=== PATIENT | male | born 1955 | race Two or more races ===

== ENCOUNTER 2016-12-01 14:35 | Inpatient (IN) | payer MEDICAID ==
[~2016-12-01] VITALS: Ht 165.1 cm; Wt 68.0 kg
[~2016-12-01 14:35] MED LIST: NORVASC2.5 MG ORAL
--- NOTE | 2016-12-01 14:54 | Emergency Room Report ---
History of Present Illness General Chief Complaint: General Complaint Source: Patient, Medical Record Present Illness HPI 61-year-old male with pmhx of HTN, HLD p/w chest pain for 2 hours. Chest pain started while walking. Localized to substernal area, no radiation to back or other areas, sharp in nature, gradual in onset, lasted one to 2 hours, 1 episode. Occurred on exertion. States that he felt very dizzy after he got the chest pain, fell but did not hit his head. Denies SOB. Denies palpitations, diaphoresis, n/v. Denies fever, chills, cough, abd pain. Denies trauma. Patient has never had a stress test. Patient has never had a cardiac catheterization. Denies smoking, no family history of cardiac disease at a young age. Allergies: Coded Allergies: No Known Allergies (Unverified , 12/01/16) Patient History Past Medical History: see triage record Past Surgical History: none Pertinent Family History: none Reviewed Nursing Documentation: PMH: Agreed, PSxH: Agreed Nursing Documentation-PMH Hx Hypertension: Yes - HYPERCHOLESTEROLEMIA Review of Systems All Other Systems: negative except mentioned in HPI Physical Exam Vital Signs Date Time Temp Pulse Resp B/P (MAP) Pulse Ox O2 Delivery O2 Flow Rate FiO2 12/01/16 14:30 99.0 115 20 156/100 96 Room Air Sp02 EP Interpretation: reviewed, normal General Appearance: alert, GCS 15, non-toxic, mild distress, other - Appears anxious, slightly short of breath however it is speaking in complete sentences Head: normocephalic, atraumatic Eyes: bilateral eye normal inspection, bilateral eye PERRL, bilateral eye EOMI ENT: normal ENT inspection, normal pharynx, normal voice, moist mucus membranes Neck: normal inspection, full range of motion, supple Respiratory: normal inspection, lungs clear, normal breath sounds, no respiratory distress, no retraction, no wheezing, speaking full sentences, chest symmetrical Cardiovascular #1: normal inspection, regular rate, rhythm, no edema, normal capillary refill Cardiovascular #2: 2+ radial (R), 2+ radial (L) Gastrointestinal: normal inspection, non tender, soft, non-distended, no guarding Musculoskeletal: normal inspection, back normal, normal range of motion, non- tender Neurologic: normal inspection, alert, oriented x3, responsive, motor strength/ tone normal, sensory intact, normal gait, speech normal Psychiatric: normal inspection, judgement/insight normal, memory normal Skin: normal inspection, normal color, no rash, warm/dry, well hydrated, normal turgor Medical Decision Making Diagnostic Impression: Primary Impression: Acute coronary syndrome Additional Impressions: Anemia CHF (congestive heart failure) Renal insufficiency Atrial fibrillation with controlled ventricular rate ER Course 61-year-old male p/w CP for 2 hours DDX: ACS vs. CHF vs. pneumonia vs. gastritis/GERD vs. pneumothorax Plan: IV access, obtain labs including troponin, EKG, CXR ASA Anticipate admission ER course: Patient was treated with ASA. Patient has remained on a monitor, HD stable, chest pain improved. Pt unable to urinate on own, had catheter placed which drained johnny colored urine Disposition: Patient requires admission for chest pain for telemetry Due to patient's history and comorbidities, patient has increased risk of acute cardiac event. Patient requires admission for further workup, serial troponin, and possible stress test/cath inpatient. D/W hospitalist Dr Lee who has accepted admission Please note that this Emergency Department Report was dictated using [employer] station manager technology software, occasionally this can lead to erroneous entry secondary to interpretation by the dictation equipment. EKG Diagnostic Results EP Interpretation: Yes Rate: normal Rhythm: afib ST Segments: TWI I, aVL, V6 ASA given to patient: Y Rhythm Strip EP Interpretation: Yes Rate: 90 Rhythm: afib, no PVCs, no ectopy Chest X-ray CXR: Ordered: Yes 1 view Indication: Chest pain EP interpretation: Yes Interpretation: +cardiomegaly, mild pulm vasc congestion Impression: +cardiomegaly chf Electronically signed by Shiloh Pitt MD Laboratory Tests Test 12/01/16 15:00 White Blood Count 6.9 K/UL (4.8-10.8) Red Blood Count 3.48 M/UL (4.70-6.10) L Hemoglobin 8.2 G/DL (14.2-18.0) L Hematocrit 26.7 % (42.0-52.0) L Mean Corpuscular Volume 77 FL (80-99) L Mean Corpuscular Hemoglobin 23.7 PG (27.0-31.0) L Mean Corpuscular Hemoglobin Concent 30.8 G/DL (32.0-36.0) L Red Cell Distribution Width 19.7 % (11.6-14.8) H Platelet Count 258 K/UL (150-450) Mean Platelet Volume 6.3 FL (6.5-10.1) L Neutrophils (%) (Auto) 74.3 % (45.0-75.0) Lymphocytes (%) (Auto) 10.9 % (20.0-45.0) L Monocytes (%) (Auto) 11.0 % (1.0-10.0) H Eosinophils (%) (Auto) 2.6 % (0.0-3.0) Basophils (%) (Auto) 1.1 % (0.0-2.0) Sodium Level 136 MMOL/L (136-145) Potassium Level 4.9 MMOL/L (3.5-5.1) Chloride Level 101 MMOL/L (98-107) Carbon Dioxide Level 22 MMOL/L (21-32) Anion Gap 13 mmol/L (5-15) Blood Urea Nitrogen 76 mg/dL (7-18) H Creatinine 2.6 MG/DL (0.55-1.30) H Estimate Glomerular Filtration Rate 25.4 mL/min (>60) Glucose Level 104 MG/DL (74-106) Calcium Level 9.2 MG/DL (8.5-10.1) Total Bilirubin 0.5 MG/DL (0.2-1.0) Aspartate Amino Transferase (AST) 55 U/L (15-37) H Alanine Aminotransferase (ALT) 58 U/L (12-78) Alkaline Phosphatase 267 U/L (46-116) H Total Creatine Kinase 47 U/L (26-308) Creatine Kinase MB 1.8 NG/ML (0.0-3.6) Creatine Kinase MB Relative Index 3.8 Troponin I 0.035 ng/mL (0.000-0.056) Pro-B-Type Natriuretic Peptide 22947 pg/mL (0-125) H Total Protein 7.9 G/DL (6.4-8.2) Albumin 3.0 G/DL (3.4-5.0) L Globulin 4.9 g/dL Albumin/Globulin Ratio 0.6 (1.0-2.7) L Last Vital Signs Date Time Temp Pulse Resp B/P (MAP) Pulse Ox O2 Delivery O2 Flow Rate FiO2 10/25/17 14:30 99.0 115 20 156/100 96 Room Air Disposition: ADMITTED INPATIENT Condition: Serious Shiloh Pitt M.D. Dec 01, 2016 14:54
[2016-12-01 14:59] VITALS: BP 156/100
[2016-12-01 15:24] LABS: BASOPHILS % (AUTO) 1.1 % (0.0-2.0); EOSINOPHILS % (AUTO) 2.6 % (0.0-3.0); LYMPHOCYTES % (AUTO) 10.9 % (20.0-45.0); MEAN CORPUSCULAR HEMOGLOBIN 23.7 PG (27.0-31.0); MEAN CORPUSCULAR HGB CONC 30.8 G/DL (32.0-36.0); MEAN CORPUSCULAR VOLUME 77 FL (80-99); MEAN PLATELET VOLUME 6.3 FL (6.5-10.1); NEUTROPHILS % (AUTO) 74.3 % (45.0-75.0); PLATELET COUNT 258 K/UL (150-450); RED BLOOD COUNT 3.48 M/UL (4.70-6.10); RED CELL DISTRIBUTION WIDTH 19.7 % (11.6-14.8); WHITE BLOOD COUNT 6.9 K/UL (4.8-10.8)
--- NOTE | 2016-12-01 15:28 | Diagnostic Imaging Report ---
Indication: PAIN Technique: One view of the chest Comparison: none Findings: There is opacity left mid and lower lung, likely combination of pleural fluid and infiltrate/atelectasis. The heart is enlarged.. Impression: Cardiomegaly Left-sided pleural effusion, likely underlying parenchymal atelectasis and/or consolidation
[2016-12-01 15:36] LABS: ALANINE AMINOTRANSFERASE 58 U/L (12-78); ALBUMIN/GLOBULIN RATIO 0.6 (1.0-2.7); ANION GAP 13 mmol/L (5-15); ASPARTATE AMINO TRANSFERASE 55 U/L (15-37); CALCIUM 9.2 MG/DL (8.5-10.1); CARBON DIOXIDE 22 MMOL/L (21-32); CHLORIDE 101 MMOL/L (98-107); CKMB 1.8 NG/ML (0.0-3.6); CREATININE 2.6 MG/DL (0.55-1.30); GLOMERULAR FILTRATION RATE 25.4 mL/min (>60); POTASSIUM 4.9 MMOL/L (3.5-5.1); SODIUM 136 MMOL/L (136-145); TOTAL PROTEIN 7.9 G/DL (6.4-8.2)
[2016-12-01 15:43] VITALS: BP 156/109
[2016-12-01 15:57] LABS: APPEARANCE,URINE SLIGHTLY CLOUDY; KETONES,URINE NEGATIVE (NEGATIVE); LEUKOCYTE ESTERASE ,URINE NEGATIVE (NEGATIVE); NITRITE,URINE NEGATIVE (NEGATIVE); PH,URINE 6 (4.5-8.0); PROTEIN,URINE 3+ (NEGATIVE); UROBILINOGEN,URINE 1 MG/DL (0.0-1.0)
[2016-12-01 16:05] LABS: AMORPHOUS SEDIMENT,UR MANY /LPF; BACTERIA,URINE FEW /HPF; RBC,URINE TNTC /HPF (0 - 0); WBC,URINE 0-2 /HPF (0 - 0)
[2016-12-01] MEDS ORDERED: Nitroglycerin Subl 0.4mg tab SL PRN (17:45)
[2016-12-01] MEDS ORDERED: Warfarin Sodium 1mg ORAL ONE (17:45)
[2016-12-01] MEDS ORDERED: Zolpidem 5mg tab ORAL PRN (17:45)
[2016-12-01] MEDS ORDERED: Miralax 17gm pkt ORAL PRN (17:45)
[2016-12-01] MEDS ORDERED: Acetaminophen 650 MG SUPP RECTAL PRN (17:45)
[2016-12-01] MEDS ORDERED: Metoprolol Tartrate 12.5mg TAB ORAL ONE (18:30)
[2016-12-01] MEDS: HydrALAZINE 25mg tab ORAL SCH (18:42)
[2016-12-01 18:44] VITALS: BP 154/116
[2016-12-01 19:09] LABS: PROTHROMBIN TIME 10.6 SEC (9.30-11.50)
--- NOTE | 2016-12-01 19:21 | Cardiology Progress Note ---
Assessment/Plan Assessment/Plan The patient is seen and examined, full consult note will be dictated soon. Objective Last 24 Hour Vital Signs Date Time Temp Pulse Resp B/P (MAP) Pulse Ox O2 Delivery O2 Flow Rate FiO2 12/01/16 18:44 97.3 101 20 154/116 95 Room Air 12/01/16 18:42 154/116 12/01/16 18:42 101 154/116 12/01/16 18:31 89 24 141/71 99 Room Air 12/01/16 15:43 99.0 96 29 156/109 98 Room Air 12/01/16 14:59 99.0 20 156/100 96 Room Air 12/01/16 14:30 99.0 115 20 156/100 96 Room Air Intake and Output 12/01/16 12/02/16 19:00 07:00 Intake Total 490 ml Output Total 20 ml Balance 470 ml Intake Oral 490 ml Output Urine Total 20 ml Laboratory Tests Test 12/01/16 15:00 12/01/16 15:40 White Blood Count 6.9 K/UL (4.8-10.8) Red Blood Count 3.48 M/UL (4.70-6.10) L Hemoglobin 8.2 G/DL (14.2-18.0) L Hematocrit 26.7 % (42.0-52.0) L Mean Corpuscular Volume 77 FL (80-99) L Mean Corpuscular Hemoglobin 23.7 PG (27.0-31.0) L Mean Corpuscular Hemoglobin Concent 30.8 G/DL (32.0-36.0) L Red Cell Distribution Width 19.7 % (11.6-14.8) H Platelet Count 258 K/UL (150-450) Mean Platelet Volume 6.3 FL (6.5-10.1) L Neutrophils (%) (Auto) 74.3 % (45.0-75.0) Lymphocytes (%) (Auto) 10.9 % (20.0-45.0) L Monocytes (%) (Auto) 11.0 % (1.0-10.0) H Eosinophils (%) (Auto) 2.6 % (0.0-3.0) Basophils (%) (Auto) 1.1 % (0.0-2.0) Prothrombin Time 10.6 SEC (9.30-11.50) Prothromb Time International Ratio 1.0 (0.9-1.1) Sodium Level 136 MMOL/L (136-145) Potassium Level 4.9 MMOL/L (3.5-5.1) Chloride Level 101 MMOL/L (98-107) Carbon Dioxide Level 22 MMOL/L (21-32) Anion Gap 13 mmol/L (5-15) Blood Urea Nitrogen 76 mg/dL (7-18) H Creatinine 2.6 MG/DL (0.55-1.30) H Estimat Glomerular Filtration Rate 25.4 mL/min (>60) Glucose Level 104 MG/DL (74-106) Calcium Level 9.2 MG/DL (8.5-10.1) Total Bilirubin 0.5 MG/DL (0.2-1.0) Aspartate Amino Transf (AST/SGOT) 55 U/L (15-37) H Alanine Aminotransferase (ALT/SGPT) 58 U/L (12-78) Alkaline Phosphatase 267 U/L (46-116) H Total Creatine Kinase 47 U/L (26-308) Creatine Kinase MB 1.8 NG/ML (0.0-3.6) Creatine Kinase MB Relative Index 3.8 Troponin I 0.035 ng/mL (0.000-0.056) Pro-B-Type Natriuretic Peptide 01465 pg/mL (0-125) H Total Protein 7.9 G/DL (6.4-8.2) Albumin 3.0 G/DL (3.4-5.0) L Globulin 4.9 g/dL Albumin/Globulin Ratio 0.6 (1.0-2.7) L Urine Color Yellow Urine Appearance Slightly cloudy Urine pH 6 (4.5-8.0) Urine Specific [place] Ari 1.010 (1.005-1.035) Urine Protein 3+ (NEGATIVE) H Urine Glucose (UA) Negative (NEGATIVE) Urine Ketones Negative (NEGATIVE) Urine Occult Blood 5+ (NEGATIVE) H Urine Nitrite Negative (NEGATIVE) Urine Bilirubin Negative (NEGATIVE) Urine Urobilinogen 1 MG/DL (0.0-1.0) H Urine Leukocyte Esterase Negative (NEGATIVE) Urine RBC Tntc /HPF (0 - 0) H Urine WBC 0-2 /HPF (0 - 0) Urine Squamous Epithelial Cells None /LPF (NONE/OCC) Urine Amorphous Sediment Many /LPF (NONE) H Urine Bacteria Few /HPF (NONE) FLAVIO HANCOCK Dec 01, 2016 19:21
[2016-12-01 20:00] VITALS: BP 144/96
[2016-12-01] MEDS ORDERED: Imdur 30mg tab ORAL SCH (21:00)
[2016-12-01] MEDS: Heparin 5000 units/ml inj SUBQ SCH (21:00)
[2016-12-01] MEDS ORDERED: METOPROLOL SUCC25 MG ORAL (21:38)
[2016-12-01] MEDS ORDERED: ISOSORBIDE MONO30 M1 PO (21:38)
[2016-12-01] MEDS ORDERED: LIPITOR20 MG ORAL (21:38)
[2016-12-01] MEDS ORDERED: LOSARTAN POTASS50 MG ORAL (21:38)
[2016-12-01] MEDS ORDERED: XARELTO15 MG ORAL (21:38)
[2016-12-01] MEDS ORDERED: ASPIRIN EC81 MG ORAL (21:38)
[2016-12-01] MEDS ORDERED: BUMETANIDE2 MG ORAL (21:38)
[2016-12-01] MEDS ORDERED: FERROUS SULFAT325 MG ORAL (21:38)
[2016-12-01] MEDS ORDERED: AMLODIPINE BESY10 MG ORAL (21:38)
[2016-12-01] MEDS ORDERED: HYDRALAZINE HC100 MG ORAL (21:38)
[2016-12-02] VITALS: BP 151/93
--- NOTE | 2016-12-02 01:45 | Consultation ---
DATE OF CONSULTATION: 12/01/2016 CARDIOLOGY CONSULTATION CONSULTING PHYSICIAN: Sage Hines M.D. REFERRING PHYSICIAN: Davonte Lee M.D. REASON FOR CONSULTATION: Management of chest pain. HISTORY OF PRESENT ILLNESS: This Cardiology consultation is on behalf of Dr. Rashaad Carney for whom I am covering. The patient is a very pleasant 61-year-old gentleman, who presented to the emergency department with complaints of chest pain that occurred while he was walking in the midsternal area, nonradiating, sharp in character that lasted just about a couple hours. The pain was not associated with shortness of breath, but he had some dizziness associated with it. He decided to come to the hospital. On arrival to the hospital, initial blood pressure was 156/100 mmHg and heart rate of 115. He was admitted to the telemetry under the service of Dr. Lee. Cardiology consultation was made for evaluation of chest pain. The patient states that he has a history of weak heart, but he had never had any workup for it. His risk factors for coronary artery disease including hypertension and hyperlipidemia. In the emergency department, initial evaluation also revealed presence of renal failure. A 12-lead electrocardiogram was significant for atrial fibrillation with no ST and T-wave abnormalities to suggest acute ischemia. Initial troponin I level was within normal limits. PAST MEDICAL HISTORY: Hypertension, hyperlipidemia, and history of cardiomyopathy. PAST SURGICAL HISTORY: None. MEDICATIONS: List of medication includes amlodipine 2.5 mg p.o. daily. SOCIAL HISTORY: Used to drink many, many years ago, but not a heavy drinker. Denies any tobacco or illicit drug use. FAMILY HISTORY: No premature coronary artery disease in first-degree relatives. REVIEW OF SYSTEMS: HEENT: Denies any headache, diplopia, or blurred vision. CONSTITUTIONAL: Denies any fever, chills, nausea, or weight loss. CARDIOVASCULAR: Complains of chest pain, but no PND, orthopnea, leg swelling, syncope, or palpitation. PULMONARY: Denies any cough or hemoptysis. GASTROINTESTINAL: Denies any nausea, vomiting, diarrhea, constipation, abdominal pain, or GI bleed. GENITOURINARY: Denies any hematuria, dysuria, or incontinence. NEUROLOGY: Denies any motor dysfunction, sensory deficit, or altered speech. PHYSICAL EXAMINATION: VITAL SIGNS: Blood pressure is 156/100, respirations 20, pulse of 115, temperature 99.0 degrees Fahrenheit, and O2 saturation 96% on room air. GENERAL: He is a very pleasant 61-year-old gentleman, in no apparent respiratory distress. Alert and oriented x4. HEENT: Atraumatic and normocephalic. Pupils are equal, round and reactive to light and accommodation. Extraocular muscles intact. NECK: JVP elevated that is about 18 cm. No carotid bruit. Carotid upstrokes 2+ bilaterally. CARDIOVASCULAR: Normal S1 and S2. Irregularly irregular rhythm. There is a 2/6 mid systolic murmur at the left sternal border. PMI is at 4th intercostal space at the midclavicular line. LUNGS: Clear to auscultation bilaterally. ABDOMEN: Soft, nontender, and nondistended. No hepatosplenomegaly. Positive bowel sounds. EXTREMITIES: There is no evidence of edema, clubbing, or cyanosis. LABORATORY FINDINGS: Sodium 136, potassium is 4.9, chloride 101, bicarbonate 22, BUN of 76, creatinine 2.6, glucose is 104, and calcium is 9.2. Troponin I was 0.035. ProBNP was 23,564. INR is 1.0. WBC 6.9, hemoglobin 8.2, hematocrit 26.7, and platelet count is 258,000. Chest x-ray showed left-sided pleural effusion, but no evidence of pulmonary edema. There is also presence of cardiomegaly. ASSESSMENT AND PLAN: The patient is a very unfortunate 61-year-old gentleman, seen in Cardiology consultation at the request of Dr. Lee. 1. I would suspect that the patient has permanent atrial fibrillation. It appears that he has a rapid ventricular response. We would like to rate control with beta-blockers. 2. At this time, the patient's CHADS-VASc score is above 1. Therefore, there is immediate requirement for anticoagulation therapy. However, we do not have a clear cardiac picture. The patient may have associated cardiomyopathy based on the history. A 2D echocardiography is ordered. Further therapeutic and diagnostic decision will be based on the result of this study. 3. Chest pain, appears to be atypical. Risk factors for coronary artery disease including hypertension and hyperlipidemia. We would like to obtain another troponin I level to rule out acute myocardial infarction. The patient may be a surgical candidate for pharmacological stress test. In the meantime, we would like to obtain a fasting lipid panel. 4. History of hypertension. We would like to continue with calcium channel josue and beta-blockers. I would like to thank Dr. Lee for the courtesy of this consultation. Sage Hines M.D. DR: EARLENE JOB#: [id number] CC:
[2016-12-02 04:00] VITALS: BP 146/98
[2016-12-02 08:13] LABS: MEAN CORPUSCULAR HEMOGLOBIN 22.4 PG (27.0-31.0); MEAN CORPUSCULAR HGB CONC 28.3 G/DL (32.0-36.0); MEAN CORPUSCULAR VOLUME 79 FL (80-99); PLATELET COUNT 248 K/UL (150-450); RED BLOOD COUNT 3.54 M/UL (4.70-6.10); RED CELL DISTRIBUTION WIDTH 19.4 % (11.6-14.8); WHITE BLOOD COUNT 6.7 K/UL (4.8-10.8)
[2016-12-02 08:26] VITALS: BP 147/106
[2016-12-02 08:35] LABS: ALANINE AMINOTRANSFERASE 65 U/L (12-78); ALBUMIN/GLOBULIN RATIO 0.6 (1.0-2.7); ANION GAP 11 mmol/L (5-15); ASPARTATE AMINO TRANSFERASE 53 U/L (15-37); CALCIUM 9.2 MG/DL (8.5-10.1); CARBON DIOXIDE 24 MMOL/L (21-32); CHLORIDE 104 MMOL/L (98-107); CHOLESTEROL 132 MG/DL (< 200); CHOLESTEROL/HDL RATIO 2.2 (3.3-4.4); CKMB 1.4 NG/ML (0.0-3.6); CREATININE 2.6 MG/DL (0.55-1.30); FERRITIN 77 NG/ML (8-388); GLOMERULAR FILTRATION RATE 25.4 mL/min (>60); POTASSIUM 4.4 MMOL/L (3.5-5.1); SODIUM 139 MMOL/L (136-145); THYROID STIMULATING HORMONE 0.975 uiU/mL (0.360-3.740); TOTAL PROTEIN 7.8 G/DL (6.4-8.2)
[2016-12-02 08:50] LABS: IRON 24 ug/dL (50-175); TOTAL IRON BINDING CAPACITY 390 ug/dL (250-450)
[2016-12-02 08:56] LABS: ANISOCYTOSIS 1+; BAND NEUTROPHILS % (MANUAL) 0 % (0-8); BASOPHILS % (MANUAL) 0 % (0-2); EOSINOPHILS % (MANUAL) 2 % (0-3); HYPOCHROMASIA 1+; LYMPHOCYTES % (MANUAL) 10 % (20-45); MICROCYTES 1+; NEUTROPHILS % (MANUAL) 80 % (45-75); PLATELET ESTIMATE ADEQUATE; PLATELET MORPHOLOGY NORMAL; TOTAL CELLS COUNTED 100
[2016-12-02] MEDS ORDERED: Aspirin Baby 81mg NG SCH (09:00)
[2016-12-02] MEDS ORDERED: Metoprolol 25mg tab ORAL SCH (09:00)
[2016-12-02] MEDS ORDERED: Metoprolol Tartrate 12.5mg TAB ORAL SCH (09:00)
--- NOTE | 2016-12-02 10:07 | Diagnostic Imaging Report ---
Indication: Acute renal failure Technique: Grayscale and duplex images of the kidneys, retroperitoneum, and bladder were obtained. Comparison:None Findings: Right kidney measures 9.7 cm in length. Left kidney measures 10.3 cm in length. Both kidneys demonstrate borderline increased echogenicity.. No hydronephrosis. Right kidney demonstrates small cysts. The left kidney demonstrates a heterogeneous interpolar region mass which measures 2.5 cm in diameter, does demonstrate some increased through-transmission. Other simple cysts are seen in the left kidney. Normal inferior vena cava. Bladder demonstrates wall thickening. Incidental finding of trace ascites Impression: Negative for hydronephrosis Borderline increased renal echogenicity, likely medical renal disease Left renal interpolar region mass with low-level internal echoes. Possibly a complex cyst, but solid mass also a possibility. Further evaluation with contrast CT if possible, or MRI recommended. This finding was discussed by phone with Dr. Lee at time of interpretation Trace ascites fluid
[2016-12-02] MEDS: HydrALAZINE 25mg tab ORAL SCH ×2 (10:09→13:35)
[2016-12-02] MEDS: Heparin 5000 units/ml inj SUBQ SCH (10:13)
[2016-12-02 11:32] VITALS: BP 157/109
[2016-12-02] MEDS ORDERED: Flu Vaccine Quadrivalent 0.5ml IM ONE (12:00)
--- NOTE | 2016-12-02 15:34 | Cardiology Report ---
APPROVED REPORT EXAM: Two-dimensional and M-mode echocardiogram with Doppler and color Doppler. INDICATION Coronary artery disease M-Mode DIMENSIONS IVSd1.4 (0.7-1.1cm)Left Atrium (MM)4.8 (1.6-4.0cm) LVDd5.9 (3.5-5.6cm)Aortic Root2.9 (2.0-3.7cm) PWd1.0 (0.7-1.1cm)Aortic Cusp Exc.2.0 (1.5-2.0cm) LVDs5.3 (2.5-4.0cm) PWs1.5 cm Limited study due to patient request to end examination early. Mild left ventricular chamber size enlargement. Abnormal septal motion. Global left ventricular hypokinesis. Left ventricular ejection fraction estimated to be 15-20 %. Mild left ventricular hypertrophy. Possible large pleural effusion. Mild left atrial enlargement. Moderate right atrial enlargement. Moderate right ventricular enlargement. Mild focal aortic valve sclerosis with adequate cusp excursion. Mildly thickened mitral valve leaflets with normal excursion. Mild mitral annulus and aortic root calcification. Normal pulmonic valve structure. Normal tricuspid valve structure. Subcostal views not obtained. A color flow and spectral Doppler study was performed and revealed: Trace aortic regurgitation. Moderate mitral regurgitation. Left ventricular diastolic function could not be determined due to A-Fib. Severe tricuspid regurgitation. Tricuspid systolic velocities suggests peak right ventricular systolic pressure of 65 mmHg, consistent with severe pulmonary hypertension. No pulmonic regurgitation present.
--- NOTE | 2016-12-02 16:33 | Cardiology Report ---
APPROVED REPORT EKG Measurement Heart [id number] Atrial fibrillation Nonspecific T wave abnormality Abnormal ECG
--- NOTE | 2016-12-02 16:39 | Cardiology Report ---
APPROVED REPORT EKG Measurement Heart [id number] Atrial fibrillation T wave abnormality, consider lateral ischemia Abnormal ECG
[2016-12-02] MEDS: Imdur 30mg tab ORAL SCH (16:43)
[2016-12-02] MEDS: Xarelto 15mg tab ORAL SCH (16:44)
[2016-12-02] MEDS ORDERED: Norco 5mg/325mg tab ORAL PRN (17:45)
[2016-12-02] MEDS ORDERED: Metoprolol Succinate XL 25mg tab ORAL SCH (18:00)
[2016-12-02] MEDS: Bumetanide 1mg tab ORAL SCH (18:05)
[2016-12-02] MEDS: HydrALAZINE 50mg tab ORAL SCH (18:06)
--- NOTE | 2016-12-02 19:00 | History and Physical Report ---
DATE OF ADMISSION: 12/01/2016 CHIEF COMPLAINT AND REASON FOR HOSPITALIZATION: The patient is admitted for evaluation of chest pressure and other medical conditions. HISTORY OF PRESENT ILLNESS: The patient presents with an episode occurring apparently while he was in the [facility] station of feeling dizziness, weak, and feeling like he might fall. He had an episode of chest pressure that he stated lasted 20 minutes. He was assisted by a person in the [facility] station and came to the emergency room. The patient states he has had a history of heart disease and has seen doctors in other facilities. He has apparently had a cardiac catheterization and was told he has blockages, but according to the patient, he is not aware of having any stents. He also has had recurrent [id number] leg and scrotal edema, he states about once a month. The patient has a history of hypertension. He is in atrial fibrillation, which apparently is chronic. PAST SURGICAL HISTORY: He had trauma to the right leg with fracture and skin graft from the right thigh and also a bone graft from his right hip. MEDICATIONS: Medications at home according to a list obtained from the nurse include amlodipine, losartan, Xarelto, metoprolol, Bumex, hydralazine, atorvastatin, isosorbide, and ferrous sulfate and I believe aspirin 81 mg daily. ALLERGIES: None known. HABITS: He smokes 2 or 3 cigarettes a day, formally more. Alcohol in the past, none currently. He used amphetamines, he states for only about 20 days that was 50 days ago. SOCIAL HISTORY: He is from his . 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 SYSTEM REVIEW: HEAD, EYES, EARS, NOSE, AND THROAT: He has some blurry vision for distant vision. He is not aware of any cataracts or glaucoma. Hearing is good. ENDOCRINE: He is not aware of any diabetes or thyroid disease. PULMONARY: No history of asthma or TB. He has had some dyspnea on exertion. CARDIAC: See history of present illness. GASTROINTESTINAL: No ulcers or GI bleeding. No abdominal pain. GENITOURINARY: No dysuria or hematuria. He has slight decreased stream of the urine. NEUROLOGIC: No CVA, syncope, or seizures. MUSCULOSKELETAL: No history of severe joint disease. PHYSICAL EXAMINATION: GENERAL: The patient is an alert man, sitting up in a chair, currently in no acute distress, somewhat thin. BMI is 26.6. VITAL SIGNS: Temperature 97.3 degrees, pulse 92, respirations 20, blood pressure 146/98, and pulse oximetry 95% on room air. HEENT: Sclerae nonicteric. Ocular motions are intact in all directions. Oral mucosa is moist. NECK: No adenopathy or thyroid enlargement. LUNGS: Clear. HEART: Rhythm is atrial fibrillation. There is a 1/6 systolic murmur. ABDOMEN: Soft without organomegaly or masses. GENITOURINARY: Penis and testes normal. No scrotal edema. BACK: Mild kyphosis. EXTREMITIES: No edema, cyanosis, or clubbing. NEUROLOGIC: He is alert and oriented. Cranial nerves are intact. LABORATORY AND DIAGNOSTIC DATA: Troponin is 0.037 and 0.036 serially. BUN 76 and creatinine 2.6. Electrolytes normal. The BNP 23,564. Albumin is 3.0. IMPRESSION: 1. Chest pain, possible acute coronary syndrome with a history of cardiac disease as noted above. 2. Chronic congestive heart failure. 3. Chronic kidney disease, likely stage 4 or 5. 4. Left-sided pleural effusion, likely underlying parenchymal atelectasis and consolidation. 5. Chronic atrial fibrillation with somewhat high ventricular rate on arrival. 6. Hypertensive heart disease and renal disease. 7. Questionable right renal mass on ultrasound, which likely is a cyst, but he is at risk for having a renal mass. 8. Inadequate database as far as prior records. PLAN: The patient will be placed back on a regimen similar to his home regimen. We will watch him for any cardiac complications, try to stabilize his condition, discuss his renal disease and future care and need for followup as he may need dialysis in the future. We will also get renal imaging. Davonte Lee M.D. DR: Anjelica JOB#: [id number] CC:
[2016-12-02 20:09] VITALS: BP 119/80
[2016-12-02] MEDS ORDERED: Xarelto 15mg tab ORAL SCH (21:00)
[2016-12-02] MEDS ORDERED: Atorvastatin 20mg tab ORAL SCH (21:00)
[2016-12-02] MEDS ORDERED: Iron Sucrose 100 MG in NS 55 ML IV SCH (21:00)
--- NOTE | 2016-12-02 23:02 | Cardiology Progress Note ---
Assessment/Plan Assessment/Plan 1. Chest pain, atypical likely due to underlying CM, AMI is ruled out. Continue medical therapy. ECG with no clear cut evidence of ischemia. 2. Chronic systolic and diastolic CHF 3. Severe pulmonary HTN likely due to pulmonary venous HTN. Subjective Subjective Atrial fibrillation with controlled ventricular response around 81. Objective Last 24 Hour Vital Signs Date Time Temp Pulse Resp B/P (MAP) Pulse Ox O2 Delivery O2 Flow Rate FiO2 12/02/16 20:09 97.0 81 20 119/80 93 Room Air 12/02/16 18:06 157/109 12/02/16 18:05 83 157/109 12/02/16 16:43 157/109 12/02/16 16:00 83 12/02/16 13:35 157/109 12/02/16 12:00 79 12/02/16 11:32 97.1 84 20 157/109 96 Room Air 12/02/16 10:10 105 147/106 12/02/16 10:09 147/106 12/02/16 08:26 97.1 105 20 147/106 95 Room Air 12/02/16 08:00 100 12/02/16 04:00 76 12/02/16 04:00 97.3 92 20 146/98 95 Room Air 92 12/02/16 00:00 92 12/02/16 00:00 97.9 75 20 151/93 Room Air Intake and Output 12/02/16 12/03/16 19:00 07:00 Intake Total 980 ml Output Total 1025 ml Balance -45 ml Intake Oral 980 ml Output Urine Total 1025 ml # Voids 1 2D Echo: Four chamber DCM, LVEF 15%, LVH, Large pl. effusion, RVSP 65 mmHg, Mod MR Laboratory Tests Test 12/02/16 07:40 White Blood Count 6.7 K/UL (4.8-10.8) Red Blood Count 3.54 M/UL (4.70-6.10) L Hemoglobin 7.9 G/DL (14.2-18.0) L Hematocrit 28.0 % (42.0-52.0) L Mean Corpuscular Volume 79 FL (80-99) L Mean Corpuscular Hemoglobin 22.4 PG (27.0-31.0) L Mean Corpuscular Hemoglobin Concent 28.3 G/DL (32.0-36.0) L Red Cell Distribution Width 19.4 % (11.6-14.8) H Platelet Count 248 K/UL (150-450) Mean Platelet Volume 6.0 FL (6.5-10.1) L Neutrophils (%) (Auto) % (45.0-75.0) Lymphocytes (%) (Auto) % (20.0-45.0) Monocytes (%) (Auto) % (1.0-10.0) Eosinophils (%) (Auto) % (0.0-3.0) Basophils (%) (Auto) % (0.0-2.0) Differential Total Cells Counted 100 Neutrophils % (Manual) 80 % (45-75) H Lymphocytes % (Manual) 10 % (20-45) L Monocytes % (Manual) 8 % (1-10) Eosinophils % (Manual) 2 % (0-3) Basophils % (Manual) 0 % (0-2) Band Neutrophils 0 % (0-8) Platelet Estimate Adequate Platelet Morphology Normal Hypochromasia 1+ Anisocytosis 1+ Microcytosis 1+ Sodium Level 139 MMOL/L (136-145) Potassium Level 4.4 MMOL/L (3.5-5.1) Chloride Level 104 MMOL/L (98-107) Carbon Dioxide Level 24 MMOL/L (21-32) Anion Gap 11 mmol/L (5-15) Blood Urea Nitrogen 76 mg/dL (7-18) H Creatinine 2.6 MG/DL (0.55-1.30) H Estimat Glomerular Filtration Rate 25.4 mL/min (>60) Glucose Level 100 MG/DL (74-106) Calcium Level 9.2 MG/DL (8.5-10.1) Iron Level 24 ug/dL (50-175) L Total Iron Binding Capacity 390 ug/dL (250-450) Percent Iron Saturation 6 % (15-50) L Unsaturated Iron Binding 366 ug/dL (112-346) H Ferritin 77 NG/ML (8-388) Total Bilirubin 0.4 MG/DL (0.2-1.0) Aspartate Amino Transf (AST/SGOT) 53 U/L (15-37) H Alanine Aminotransferase (ALT/SGPT) 65 U/L (12-78) Alkaline Phosphatase 255 U/L (46-116) H Creatine Kinase MB 1.4 NG/ML (0.0-3.6) Troponin I 0.036 ng/mL (0.000-0.056) Total Protein 7.8 G/DL (6.4-8.2) Albumin 2.8 G/DL (3.4-5.0) L Globulin 5.0 g/dL Albumin/Globulin Ratio 0.6 (1.0-2.7) L Triglycerides Level 34 MG/DL (0-200) Cholesterol Level 132 MG/DL (< 200) LDL Cholesterol 57 mg/dL (<100) HDL Cholesterol 61 MG/DL (40-60) H Cholesterol/HDL Ratio 2.2 (3.3-4.4) L Vitamin B12 Level 6973 PG/ML (193-986) H Folate 11.0 NG/ML (3.1-17.5) Thyroid Stimulating Hormone (TSH) 0.975 uiU/mL (0.360-3.740) Free Thyroxine 1.10 NG/DL (0.10-1.46) Free Triiodothyronine Pending Objective HEENT: Atraumatic and normocephalic. Pupils are equal, round and reactive to light and accommodation. Extraocular muscles intact. NECK: JVP elevated that is about 18 cm. No carotid bruit. Carotid upstrokes 2+ bilaterally. CARDIOVASCULAR: Normal S1 and S2. Irregularly irregular rhythm. There is a 2/6 mid systolic murmur at the left sternal border. PMI is at 4th intercostal space at the midclavicular line. LUNGS: Clear to auscultation bilaterally. ABDOMEN: Soft, nontender, and nondistended. No hepatosplenomegaly. Positive bowel sounds. EXTREMITIES: There is no evidence of edema, clubbing, or cyanosis. FLAVIO HANCOCK Dec 02, 2016 23:02
[2016-12-03 00:17] VITALS: BP 140/103
[2016-12-03] MEDS: HydrALAZINE 50mg tab ORAL SCH ×4 (00:25→13:37)
[2016-12-03 04:07] VITALS: BP 156/95
[2016-12-03 08:01] LABS: MEAN CORPUSCULAR HEMOGLOBIN 23.6 PG (27.0-31.0); MEAN CORPUSCULAR VOLUME 76 FL (80-99); MEAN PLATELET VOLUME 6.4 FL (6.5-10.1); PLATELET COUNT 268 K/UL (150-450); RED BLOOD COUNT 3.67 M/UL (4.70-6.10); RED CELL DISTRIBUTION WIDTH 19.6 % (11.6-14.8); WHITE BLOOD COUNT 7.3 K/UL (4.8-10.8)
[2016-12-03 08:31] LABS: ANION GAP 14 mmol/L (5-15); CARBON DIOXIDE 22 MMOL/L (21-32); CHLORIDE 103 MMOL/L (98-107); CREATININE 2.5 MG/DL (0.55-1.30); GLOMERULAR FILTRATION RATE 26.6 mL/min (>60); POTASSIUM 4.4 MMOL/L (3.5-5.1); SODIUM 139 MMOL/L (136-145); THYROID STIMULATING HORMONE 1.229 uiU/mL (0.360-3.740)
[2016-12-03 08:53] VITALS: BP 150/97
[2016-12-03] MEDS ORDERED: Losartan 50mg tab ORAL SCH (09:00)
[2016-12-03] MEDS ORDERED: Aspirin EC 81mg tab ORAL SCH (09:00)
[2016-12-03 09:35] LABS: ANISOCYTOSIS 1+; BAND NEUTROPHILS % (MANUAL) 0 % (0-8); BASOPHILS % (MANUAL) 0 % (0-2); EOSINOPHILS % (MANUAL) 5 % (0-3); LYMPHOCYTES % (MANUAL) 7 % (20-45); MICROCYTES 1+; NEUTROPHILS % (MANUAL) 83 % (45-75); PLATELET ESTIMATE ADEQUATE; PLATELET MORPHOLOGY NORMAL; TOTAL CELLS COUNTED 100
[2016-12-03 09:36] LABS: HYPOCHROMASIA 1+
[2016-12-03] MEDS: Bumetanide 1mg tab ORAL SCH ×3 (10:36→13:37)
[2016-12-03] MEDS: Imdur 30mg tab ORAL SCH (10:37)
[2016-12-03 12:48] VITALS: BP 147/108
[2016-12-03] MEDS ORDERED: NS 275ml ONE (14:12)
[2016-12-03] MEDS ORDERED: Tubing IV Secondary IV ONE (14:12)
--- NOTE | 2016-12-03 14:39 | Diagnostic Imaging Report ---
Indication: Acute renal failure. Abnormal recent ultrasound demonstrating left renal solid mass versus cyst needing further characterization Technique: Coronal and axial single shot fast spin-echo breath-hold, axial T2 FRFSE fat-saturated, AXIAL 2-D FIESTA fat saturated, axial 3-D dual echo breath-hold, water weighted axial LAVA FLEX images were obtained of the abdomen. MIP reconstructions were generated of the bile ducts Comparison: Renal ultrasound 12/01/2016 Findings: Considerable motion artifact degrades images. In the anterior interpolar region, there is a round 2.2 cm mass which corresponds to the abnormality described on the recent CT scan. It is not optimally demonstrated, in part due to motion artifact. On the single shot fast spin-echo images, it demonstrates increased T2 signal anteriorly, it is mostly isointense to renal parenchyma. On the FIESTA images, it is isointense 2 renal parenchyma. On the the dual echo images, it is uniformly hyperintense on both image sets and likewise on the LAVA images. There is a lesion measuring 12 mm in the posterior interpolar region. Most of this lesion demonstrates fluid signal on all sequences. This demonstrates posterior layering of debris, the degree demonstrating signal characteristics similar to the more anterior lesion. A second 14 mm fluid signal lesion is also seen in the posterior cortex, as well as smaller fluid signal lesions small fluid signal lesions are also seen in the right kidney. There is no hydronephrosis. There is a 2 cm diameter left adrenal mass which demonstrates very low signal on the fat-saturated FIESTA images, demonstrates high signal on both phases of the dual echo images and low signal on the LAVA images. There is a moderate amount of ascites fluid present. The heart is mildly enlarged. There are bilateral pleural effusions. The coronal images demonstrate the bladder, possibly a low signal filling defect within the bladder. The liver, spleen, pancreas are grossly unremarkable. There is some edema of the anterior abdominal wall. Impression: 2.2 cm anterior left renal mass, as described. MRI signal characteristics are indeterminate. Similarity of the signal to the debris within a posterior left renal this makes it likely that this represents a benign proteinaceous cyst, but this cannot be stated for certain. Noncontrast CT may be of value to evaluate if this is hyperdense. Preferably, however, at some point patient can tolerate contrast, then multiphasic contrast CT or MRI would be useful 2 cm left adrenal mass. This appears to contain macroscopic fat on the fat suppressed sequences, but does not demonstrate shift on the dual echo sequences, and is therefore indeterminate. Suspect but cannot confirm that this represents either a myelolipoma or an adenoma. Recommend noncontrast CT for further evaluation or, preferably, multiphasic adrenal protocol CT Other bilateral renal cysts, as described Ascites Borderline artery mainly Bilateral pleural effusions Possible debris within the bladder Findings discussed by phone with Dr. Lee at the time of interpretation
[2016-12-03 15:58] VITALS: BP 126/70
[2016-12-03] MEDS: Xarelto 15mg tab ORAL SCH (17:39)
--- NOTE | 2016-12-03 18:18 | Cardiology Progress Note ---
Assessment/Plan Assessment/Plan 1. Chest pain, atypical likely due to underlying CM, AMI is ruled out. Continue medical therapy. ECG with no clear cut evidence of ischemia. 2. Chronic systolic and diastolic CHF, LVEF at ~25% on guideline directed medical therapy. 3. Severe pulmonary HTN likely due to pulmonary venous HTN. 4. HTN, will optimize hydralazine dose. Subjective Subjective Atrial fibrillation with controlled ventricular response around 91. Objective Last 24 Hour Vital Signs Date Time Temp Pulse Resp B/P (MAP) Pulse Ox O2 Delivery O2 Flow Rate FiO2 12/03/16 15:58 97.5 95 20 126/70 94 Room Air 12/03/16 13:37 147/108 12/03/16 12:48 96.6 91 19 147/108 100 Room Air 12/03/16 12:00 96 12/03/16 10:37 150/97 12/03/16 10:36 96 150/97 12/03/16 10:36 150/97 12/03/16 08:53 97.0 96 19 150/97 99 Room Air 12/03/16 08:00 101 12/03/16 06:03 141/102 12/03/16 04:07 96.3 91 24 156/95 91 Room Air 91 12/03/16 04:00 93 12/03/16 00:25 140/103 12/03/16 00:17 97.7 89 24 140/103 94 Room Air 12/03/16 00:00 87 12/02/16 20:09 97.0 81 20 119/80 93 Room Air 12/02/16 20:00 77 Intake and Output 12/03/16 12/04/16 19:00 07:00 Intake Total 750 ml Output Total 550 ml Balance 200 ml Intake Oral 750 ml Output Urine Total 550 ml 2D Echo: Four chamber DCM, LVEF 15%, LVH, Large pl. effusion, RVSP 65 mmHg, Mod MR Laboratory Tests Test 12/03/16 05:10 White Blood Count 7.3 K/UL (4.8-10.8) Red Blood Count 3.67 M/UL (4.70-6.10) L Hemoglobin 8.7 G/DL (14.2-18.0) L Hematocrit 27.9 % (42.0-52.0) L Mean Corpuscular Volume 76 FL (80-99) L Mean Corpuscular Hemoglobin 23.6 PG (27.0-31.0) L Mean Corpuscular Hemoglobin Concent 31.0 G/DL (32.0-36.0) L Red Cell Distribution Width 19.6 % (11.6-14.8) H Platelet Count 268 K/UL (150-450) Mean Platelet Volume 6.4 FL (6.5-10.1) L Neutrophils (%) (Auto) % (45.0-75.0) Lymphocytes (%) (Auto) % (20.0-45.0) Monocytes (%) (Auto) % (1.0-10.0) Eosinophils (%) (Auto) % (0.0-3.0) Basophils (%) (Auto) % (0.0-2.0) Differential Total Cells Counted 100 Neutrophils % (Manual) 83 % (45-75) H Lymphocytes % (Manual) 7 % (20-45) L Monocytes % (Manual) 5 % (1-10) Eosinophils % (Manual) 5 % (0-3) H Basophils % (Manual) 0 % (0-2) Band Neutrophils 0 % (0-8) Platelet Estimate Adequate Platelet Morphology Normal Hypochromasia 1+ Anisocytosis 1+ Microcytosis 1+ Sodium Level 139 MMOL/L (136-145) Potassium Level 4.4 MMOL/L (3.5-5.1) Chloride Level 103 MMOL/L (98-107) Carbon Dioxide Level 22 MMOL/L (21-32) Anion Gap 14 mmol/L (5-15) Blood Urea Nitrogen 71 mg/dL (7-18) H Creatinine 2.5 MG/DL (0.55-1.30) H Estimat Glomerular Filtration Rate 26.6 mL/min (>60) Glucose Level 90 MG/DL (74-106) Calcium Level 9.0 MG/DL (8.5-10.1) Troponin I 0.031 ng/mL (0.000-0.056) Thyroid Stimulating Hormone (TSH) 1.229 uiU/mL (0.360-3.740) Objective HEENT: Atraumatic and normocephalic. Pupils are equal, round and reactive to light and accommodation. Extraocular muscles intact. NECK: JVP elevated that is about 18 cm. No carotid bruit. Carotid upstrokes 2+ bilaterally. CARDIOVASCULAR: Normal S1 and S2. Irregularly irregular rhythm. There is a 2/6 mid systolic murmur at the left sternal border. PMI is at 4th intercostal space at the midclavicular line. LUNGS: Clear to auscultation bilaterally. ABDOMEN: Soft, nontender, and nondistended. No hepatosplenomegaly. Positive bowel sounds. EXTREMITIES: There is no evidence of edema, clubbing, or cyanosis. FLAVIO HANCOCK Dec 03, 2016 18:18
--- NOTE | 2016-12-04 07:16 | Discharge Summary ---
DATE OF ADMISSION: 12/01/2016 DATE OF DISCHARGE: 12/03/2016 PERTINENT HISTORY: The patient presents with an episode of dizziness and weakness like he might fall and some chest pressure. PERTINENT PHYSICAL FINDINGS: GENERAL: The patient is alert and in no acute distress. HEENT: Unremarkable. LUNGS: Clear. HEART: Rhythm is atrial fibrillation. He has a 1/6 systolic ejection murmur. ABDOMEN: Soft without organomegaly or masses. EXTREMITIES: No edema. COURSE IN THE HOSPITAL: The patient was observed and had no further chest pain. No syncope or near syncope. His vital signs remained stable. He remained in atrial fibrillation. He was started on his prior to admission medicines. The patient had abnormal kidney function with BUN 70 and creatinine 2.5 and anemia. All of these is apparently chronic kidney disease stage 4 or 5 and anemia of renal disease. He had a renal ultrasound showing a questionable renal cyst or mass and the MRI per verbal report, showed likely proteinaceous cyst as well as the adrenal mass likely adenoma. The patient was informed of the findings and since he had a prior physicians and prior evaluations elsewhere, he was advised to follow up with his prior primary care physician and to recommend that he sees a scalper operator as an outpatient. He was discharged home on his current medications and follow up with his prior provider. Case management was involved in the discharge planning. FINAL DIAGNOSES: 1. Chest pain, possible acute coronary syndrome with no evidence of an acute myocardial infarction. 2. Coronary artery disease. 3. Congestive heart failure, chronic with systolic and diastolic dysfunction. 4. Chronic kidney disease, stage 5. 5. Anemia of chronic kidney disease. FOLLOWUP: Follow up as above with medications per the discharge medication list which include his home medications. Davonte Lee M.D. DR: PHAN JOB#: [id number] CC:
== END 2016-12-03 17:50 | disposition home or self-care (01) | DRG 198 ==
LOC: EDBD 14:35 → EMR 15:05 → 2E 15:35 → EDBEDREQ 15:45
DX: I24.9 Acute ischemic heart disease, unspecified (principal); I13.2 Hypertensive heart and chronic kidney disease with heart failure and with stage 5 chronic kidney disease, or end stage renal disease; N17.9 Acute kidney failure, unspecified; I27.20 Pulmonary hypertension, unspecified; N18.5 Chronic kidney disease, stage 5; I50.42 Chronic combined systolic (congestive) and diastolic (congestive) heart failure; D64.9 Anemia, unspecified; I48.2 Chronic atrial fibrillation; I25.10 Atherosclerotic heart disease of native coronary artery without angina pectoris; D63.1 Anemia in chronic kidney disease; E78.5 Hyperlipidemia, unspecified
CPT/HCPCS: 36415; 71010; 74181; 76775; 80048; 80053; 80061; 81003; 82550; 82553; 82607; 82728; 82746; 82962; 83540; 83550; 83880; 84439; 84443; 84481; 84484; 85007; 85025; 85610; 90630; 93005; 93306; 99285